=== PATIENT | male | born 1995 | race Caucasian/White ===

== ENCOUNTER 2016-12-17 21:11 | Emergency (ER) | payer BC ==
[~2016-12-17] VITALS: Ht 180.3 cm; Wt 74.9 kg
[~2016-12-17 21:11] MED LIST: ZOLOFT50 M1 PO
[2016-12-17 21:16] VITALS: BP 137/78
== END 2016-12-17 22:41 | disposition home or self-care (01) ==
LOC: EME 21:11
PROC: 0HQGXZZ Repair Left Hand Skin, External Approach (ICD-10-PCS; principal; 2016-12-17)
DX: S61.211A Laceration without foreign body of left index finger without damage to nail, initial encounter (principal); W26.0XXA Contact with knife, initial encounter; Y93.G1 Activity, food preparation and clean up; F17.200 Nicotine dependence, unspecified, uncomplicated
CPT/HCPCS: 99281; 99284; S0020